=== PATIENT | male | born 1995 | race Hispanic/Latino ===

== ENCOUNTER 2016-06-13 18:16 | Emergency (ER) | payer OTHER ==
[2016-06-13 18:33] VITALS: BP 129/62; PULSE 74; RESP 18; TEMP 98; O2SAT 99
--- NOTE | 2016-06-13 19:51 | ED PDOC ---
HPI: Back Time Seen by Provider: 06/13/16 19:01 Chief Complaint (Nursing): Back Pain Chief Complaint (Provider): Back Pain History Per: Patient History/Exam Limitations: no limitations Onset/Duration Of Symptoms: Hrs (prior to arrival) Additional Complaint(s): Dameon Moreira, 21 year old male presents to the ED on 06/13/16, with left flank pain. Prior to arrival, the patient bent forward to pick his bag up from his trunk and suddenly started to feel pain in his left flank area. He states that the pain worsens with movement. The patient denies hematuria, dysuria, incontinence, fever, trauma, chest pain, shortness of breath, or rash. Past Medical History Reviewed: Historical Data, Nursing Documentation, Vital Signs Vital Signs: Last Vital Signs Temp 98 F 06/13/16 18:31 Pulse 74 06/13/16 18:31 Resp 18 06/13/16 18:31 BP 129/62 06/13/16 18:31 Pulse Ox 99 06/13/16 18:31 - Medical History PMH: No Chronic Diseases - Family History Family History: States: Unknown Family Hx - Home Medications Home Medications: Ambulatory Orders Medication Instructions Recorded Cyclobenzaprine [Cyclobenzaprine 10 mg PO Q8 PRN #30 tab 06/13/16 HCl] Naproxen [Naprosyn] 500 mg PO BID PRN #30 tab 06/13/16 - Allergies Allergies/Adverse Reactions: Allergies Allergy/AdvReac Type Severity Reaction Status Date / Time No Known Allergies Allergy Verified 06/13/16 18:31 Review of Systems Constitutional: Negative for: Fever, Other (no history of trauma) Cardiovascular: Negative for: Chest Pain Respiratory: Negative for: Shortness of Breath Genitourinary Male: Negative for: Dysuria, Incontinence, Hematuria Skin: Negative for: Rash Physical Exam - Reviewed Nursing Documentation Reviewed: Yes Vital Signs Reviewed: Yes - Physical Exam Appears: Positive for: Non-toxic. Negative for: No Acute Distress (Mild Painful Distress) Head Exam: Positive for: ATRAUMATIC, NORMOCEPHALIC Skin: Positive for: Normal Color, Warm, Dry Eye Exam: Positive for: Normal appearance ENT: Positive for: Normal ENT Inspection Neck: Positive for: Normal Cardiovascular/Chest: Positive for: Regular Rate, Rhythm, Chest Non Tender Respiratory: Positive for: Normal Breath Sounds. Negative for: Respiratory Distress Gastrointestinal/Abdominal: Positive for: Normal Exam, Soft. Negative for: Tenderness Back: Positive for: L CVA Tenderness, Other (left parathoracic muscle tenderness ). Negative for: Vertebral Tenderness Extremity: Positive for: Normal ROM. Negative for: Deformity Neurologic/Psych: Positive for: Alert, Oriented (x3) - Laboratory Results Urine dip results: Negative for: Leukocyte Esterase, Blood, Nitrate, Ketones, Glucose, Bilirubin, Protein - ECG O2 Sat by Pulse Oximetry: 99 (RA) Pulse Ox Interpretation: Normal - Radiology X-Ray: Interpreted by Me (Thoracic spine x-ray) X-Ray Interpretation: No Acute Disease Medical Decision Making Medical Decision Makin:01 Initial Impression: Left Flank Pain Initial Plan: * Dorsal (Thoracic) Spine [RAD] * ED Urine Dipstick (POC) * Flexeril 10 mg PO Once * Toradol 15 mg IM STAT * Reevaluation Scribe Attestation: Documented by Winter Persaud, acting as a scribe for Mo Hassan PA-C. Provider Scribe Attestation: All medical record entries made by the Scribe were at my direction and personally dictated by me. I have reviewed the chart and agree that the record accurately reflects my personal performance of the history, physical exam, medical decision making, and the department course for this patient. I have also personally directed, reviewed, and agree with the discharge instructions and disposition. Disposition - Clinical Impression Clinical Impression: Back pain - Disposition Referrals: [facility] [Outside] Disposition: Routine/Home Disposition Time: 20:17 Condition: IMPROVED Prescriptions: Cyclobenzaprine [Cyclobenzaprine HCl] 10 mg PO Q8 PRN #30 tab PRN Reason: Muscle Spasm Naproxen [Naprosyn] 500 mg PO BID PRN #30 tab PRN Reason: Pain Instructions: Muscle Spasm (ED) Forms: [facility] ED School/Work Excuse Print Language: ROMANIAN
--- NOTE | 2016-06-14 09:27 | RAD ---
HISTORY: pain COMPARISON: No prior. FINDINGS: BONES: No acute compression fractures nor retropulsed fragments. Vertebral bodies exhibit normal stature. Tube under CV and facets are normally aligned DISC SPACES: Normal. SOFT TISSUES: Normal. OTHER FINDINGS: None. IMPRESSION: No acute fractures.
== END 2016-06-13 20:56 | disposition short-term general hospital (02) ==
LOC: H.ER 18:16
DX: M54.9 Dorsalgia, unspecified (principal); R10.9 Unspecified abdominal pain

== ENCOUNTER 2017-02-23 04:31 | Emergency (ER) | payer OTHER ==
[2017-02-23 04:54] VITALS: BP 134/81; PULSE 88; RESP 18; TEMP 97.5; O2SAT 100
--- NOTE | 2017-02-23 05:08 | ED PDOC ---
HPI: Psych/Substance Abuse Time Seen by Provider: 02/23/17 04:38 Chief Complaint (Nursing): Alcohol Ingestion Chief Complaint (Provider): Alcohol Ingestion History Per: Patient History/Exam Limitations: no limitations Onset/Duration Of Symptoms: Mins (just prior to arrival) Current Symptoms Are (Timing): Still Present Additional Complaint(s): 22 y/o male, brought in by EMS, presents to the for evaluation of ETOH intoxication. Patient denies any complaints and is requesting to be discharged to take an Uber home. Past Medical History Reviewed: Historical Data, Nursing Documentation, Vital Signs Vital Signs: Last Vital Signs Temp 97.5 F L 02/23/17 04:47 Pulse 88 02/23/17 04:47 Resp 18 02/23/17 04:47 BP 134/81 02/23/17 04:47 Pulse Ox 100 02/23/17 04:47 - Medical History PMH: No Chronic Diseases - Surgical History Surgical History: No Surg Hx - Family History Family History: States: Unknown Family Hx - Social History Current smoker - smoking cessation education provided: No Ex-Smoker (has not smoked in the last 12 months): No Alcohol: Social Drugs: Denies - Home Medications Home Medications: Ambulatory Orders Medication Instructions Recorded Cyclobenzaprine [Cyclobenzaprine 10 mg PO Q8 PRN #30 tab 06/13/16 HCl] Naproxen [Naprosyn] 500 mg PO BID PRN #30 tab 06/13/16 - Allergies Allergies/Adverse Reactions: Allergies Allergy/AdvReac Type Severity Reaction Status Date / Time No Known Allergies Allergy Verified 06/13/16 18:31 Review of Systems ROS Statement: Except As Marked, All Systems Reviewed And Found Negative Constitutional: Negative for: Fever Psych: Negative for: Suicidal ideation Physical Exam - Reviewed Nursing Documentation Reviewed: Yes Vital Signs Reviewed: Yes - Physical Exam Appears: Positive for: Non-toxic, No Acute Distress Head Exam: Positive for: ATRAUMATIC, NORMOCEPHALIC Skin: Positive for: Normal Color, Warm Eye Exam: Positive for: Normal appearance, EOMI, PERRL Neck: Positive for: Normal Cardiovascular/Chest: Positive for: Regular Rate, Rhythm. Negative for: Murmur Respiratory: Positive for: Normal Breath Sounds. Negative for: Respiratory Distress Gastrointestinal/Abdominal: Positive for: Normal Exam, Soft. Negative for: Tenderness Back: Positive for: Normal Inspection Extremity: Positive for: Normal ROM. Negative for: Pedal Edema, Deformity Neurologic/Psych: Positive for: Alert, Oriented (x3, speech is clear), Gait ( steady). Negative for: Motor/Sensory Deficits - ECG O2 Sat by Pulse Oximetry: 100 (RA) Pulse Ox Interpretation: Normal Medical Decision Making Medical Decision Making: Time: --04:47 Impression: --22 yo with Alcohol Use Reassess --05:09 Patient's speech is clear and gait is steady. Patient is stable for discharge home. Scribe Attestation: Documented by Declan Esquivel acting as a scribe for Norris Coffman MD. Disposition - Clinical Impression Clinical Impression: Alcohol use - Patient ED Disposition Is Patient to be Admitted: No - Disposition Disposition: Routine/Home Disposition Time: 05:09 Condition: STABLE Instructions: Abuse of Alcohol (ED)
== END 2017-02-23 05:16 | disposition home or self-care (01) ==
LOC: H.ER 04:31
DX: F10.129 Alcohol abuse with intoxication, unspecified (principal)